=== PATIENT | female | born 1990 | race Caucasian/White ===

== ENCOUNTER 2023-09-02 03:54 | Emergency (ER) | payer OTHER, SELFPAY ==
--- NOTE | 2023-09-02 | ECG_ITS ---
Test Reason : OVERDOSE Blood Pressure : / mmHG Vent. Rate : 109 BPM Atrial Rate : 109 BPM P-R Int : 200 ms QRS Dur : 090 ms QT Int : 362 ms P-R-T Axes : 081 081 076 degrees QTc Int : 487 ms Sinus tachycardia Otherwise normal ECG No previous ECGs available Referred By: Suhail Garcia Electronically Signed By:ELIAS SHORT MD
[2023-09-02 04:05] VITALS: BP 112/68; BP 117/68; PULSE 110; PULSE 112; RESP 25; TEMP 36.4; O2SAT 100; O2SAT 98; BMI 24.5
--- NOTE | 2023-09-02 04:29 | ED.OVERDOSE ---
HPI - Overdose General Chief Complaint: Overdose Stated Complaint: OVERDOSE Time Seen by Provider: 09/02/23 04:22 Source: patient and EMS Mode of arrival: EMS History of Present Illness ED Provider: zack GARCIA Narrative: Patient's history of substance abuse heroin and cocaine was found unresponsive and apneic by her boyfriend will give her to nasal Narcan by the time EMS came patient was awake alert diaphoretic heart rate tachycardic Related Data Allergies Allergy/AdvReac Type Severity Reaction Status Date / Time No Known Allergies Allergy Verified 09/02/23 04:12 [No Known Allergies*] Review of Systems Review of Systems: Yes all other systems are reviewed and are negative [facility] Social History Social History Unable to assess alcohol history related to: Unknown Smoked in Last 30 Days: Yes Use of substances other than those prescribed or required for medical reasons: Yes Substance Use Type: Crack/Cocaine, Heroin, IV Drugs and Marijuana Substance Use Frequency: Daily Last Used Substance: Just Prior to Admission Do you have a plan to hurt others: No Plan Patient : No Physical Exam Vital Signs: Vital Signs: Last Vital Signs Temp 97.5 F 09/02/23 04:05 Pulse 82 09/02/23 06:09 Resp 16 09/02/23 06:09 BP 122/83 09/02/23 06:09 Pulse Ox 100 09/02/23 06:09 O2 Del Method Room Air 09/02/23 06:09 BMI result Body Mass Index 24.5 Appearance: Alert. Oriented X3. Anxious Eyes: PERRLA, No Nystagmus ENT: Pharynx normal. Oral Mucosa moist Neck: Normal inspection. Neck supple. CVS: Normal heart rate and rhythm. Pulses normal. Respiratory: No respiratory distress. Equal air entry bilateral, no wheezing/rales/rhonchi Abdomen: Soft and nontender. Bowel sounds are present, no mass palpable, no CVA tenderness Skin: Skin warm and dry. Normal skin color. Normal skin turgor. Extremities: No lower extremity edema. No calf tenderness IVDA track wen Neuro: Oriented X 3. No motor deficit. No sensory deficit.No cerebellar signs , cranial nerves II-XII intact Medications Administered Discontinued Medications Generic Name Dose Route Start Last Admin Trade Name Freq PRN Reason Stop Dose Admin Lorazepam 2 mg 09/02/23 05:35 09/02/23 05:40 Lorazepam 1 Mg Tablet SUBLINGUAL 09/02/23 05:36 2 mg ONCE ONE Administration Ondansetron HCl 4 mg 09/02/23 05:35 09/02/23 05:40 Ondansetron Odt 4 Mg Tab.Aristides TRANSLINGU 09/02/23 05:36 4 mg ONCE ONE Administration Medical Decision Making Medical Decision Making [facility] Narrative: 7 am patient is fully awake with history substance abuse does not want any help will like to go home will discharge patient home advised to follow with detox as outpatient vitals stable Discharge Plan Discharge Clinical Impression: Polysubstance abuse Patient Disposition: Home, Self-Care Instructions: Polysubstance Abuse (ED) Additional Instructions: Stop using cocaine and heroin Follow with detox Print Language: Vincentian
--- NOTE | 2023-09-02 05:21 | PC.NURSE ---
pt alert and oriented, keep moaning, and crying. denies any needs at this time.
[2023-09-02] MEDS: Ondansetron ODT 4 MG TAB.RAPDIS TRANSLINGU (05:40)
[2023-09-02] MEDS: LORazepam 1 MG TABLET 2 MG SUBLINGUAL (05:40)
[2023-09-02 06:09] VITALS: BP 122/83; PULSE 82; RESP 16; O2SAT 100
[2023-09-02 07:07] VITALS: BP 117/81; PULSE 99; RESP 18; O2SAT 99
--- NOTE | 2023-09-02 07:09 | PC.NURSE ---
Resumed care of pt at 0700, pt up in bed, respirations even and unlabored, vs updated, this RN explained plan of care to pt. Pt to be discharged with take home narcan, phone given to pt to call for her ride. Call orozco within reach, all needs met at this time.
[2023-09-02] MEDS: Naloxone HCl Nasal TAKE HOME 4 MG SPRAY 8 MG NOSTRILALT (07:27)
[2023-09-02 07:37] VITALS: BP 120/81; PULSE 90; RESP 18; TEMP 36.6; O2SAT 99
--- NOTE | 2023-09-03 14:32 | MHC.RECOVRN ---
Attempted to call pt for post overdose follow up. Pt did not answer, mailbox full.
== END 2023-09-02 07:38 | disposition home or self-care (01) ==
LOC: HO.ED 07:21
PROVIDERS: Emergency Provider Internal Medicine
DX: T40.1X1A Poisoning by heroin, accidental (unintentional), initial encounter (principal); R00.0 Tachycardia, unspecified; R40.4 Transient alteration of awareness; F14.10 Cocaine abuse, uncomplicated; Z71.51 Drug abuse counseling and surveillance of drug abuser
CPT/HCPCS: 93005; 99284; 99285

== ENCOUNTER → 2023-09-02 04:13 | Outpatient (BNV) | payer OTHER, SELFPAY | PROVIDERS: Emergency Provider Internal Medicine; Visit Provider Internal Medicine Cardiovascular Disease | DX: T50.901A Poisoning by unspecified drugs, medicaments and biological substances, accidental (unintentional), initial encounter (principal) | CPT/HCPCS: 93010 ==